=== PATIENT | male | born 1945 | race Caucasian/White ===

== ENCOUNTER 2022-07-25 20:19 | Inpatient (IN) ==
[2022-07-25 20:52] LABS: Basophils # (auto) 0.06 K/uL (0-0.2); Basophils % (auto) 0.7 %; Eosinophils # (auto) 0.01 K/uL (0-0.50); Eosinophils % (auto) 0.1 %; Hematocrit (blood only) 48.5 % (40.1-51.0); Hemoglobin 17.2 g/dl (14.0-18.0); Immature Granulocytes # (auto) 0.04 K/uL (0.00-0.02); Immature Granulocytes % (auto) 0.4 %; Lymphocytes # (auto) 0.73 K/uL (1.2-3.4); Mean Corpuscular Hemoglobin 31.8 pg (25.0-34.0); Mean Corpuscular Hgb Conc 35.5 g/dL (32.0-36.0); Mean Corpuscular Volume 89.6 fL (80.0-100.0); Mean Platelet Volume 10.2 fL (9.4-12.4); Monocytes # (auto) 0.88 K/uL (0.24-0.82); Monocytes % (auto) 9.7 %; Neutrophils # (auto) 7.36 K/uL (1.4-6.5); Neutrophils % (auto) 81.1 %; Platelet Count 194 K/uL (130-400); RDW Coefficient of Variation 14.2 % (11.5-14.5); RDW Standard Deviation 46.6 fL (36.4-46.3); Red Blood Count 5.41 M/uL (4.63-6.08); White Blood Count 9.08 K/ul (4.8-10.8)
[2022-07-25] MEDS ORDERED: dilTIAZem HCl 5 MG/ML 5 ML VIAL IV STA (20:53)
[2022-07-25] MEDS ORDERED: STAT IV Infusion **Titration per Protocol STA (20:53)
[2022-07-25] MEDS ORDERED: dilTIAZem HCl 5 MG/ML 5 ML VIAL IV ONE (20:54)
[2022-07-25] MEDS ORDERED: SODIUM CHLORIDE 0.9% 1000ML 1,000 ML IV ONE (20:57)
[2022-07-25] MEDS ORDERED: ASPIRIN CHEW 324 MG PO STA (20:57)
[2022-07-25] MEDS ORDERED: dilTIAZem HCL 125 MG in DEXTROSE 5% 100 ML IV SCH (21:00)
[2022-07-25 21:12] LABS: INR 1.1 (0.9-1.1); Partial Thromboplastin Time 28.8 Seconds (21.0-31.0); Prothrombin Time 12.1 Seconds (9.0-12.0)
[2022-07-25 21:17] LABS: Albumin Globulin Ratio 1.4 (0.9-2); BUN Creatinine Ratio 15.2 (10-20); Bilirubin,Total 0.7 mg/dl (0.2-1.0); Calcium 8.7 mg/dl (8.5-10.1); Creatinine Clr Calc Pharmacy 74.9 ml/min; D Dimer 860 ug/L FEU (0-500); Est GFR (African American) 85.4 ml/min; Est GFR (Non-African American) 73.7 ml/min; Globulin 2.8 gm/dl (2.5-4.0); Potassium 3.9 mmol/L (3.5-5.1); Total Protein 6.8 gm/dl (6.0-8.3)
[2022-07-25 21:31] LABS: Influenza B virus by PCR Negative (Neg); RSV by PCR Negative (Neg); SARS CoV2 RNA(COVID-19) Ceph NEGATIVE (Negative)
[2022-07-25 21:37] LABS: Influenza A virus by PCR Positive (Neg)
[2022-07-25] MEDS ORDERED: OSELTAMIVIR PHOSPHATE 75 MG CAP PO STA (22:02)
[2022-07-25 22:10] LABS: Troponin I High Sensitivity 32.1 pg/ml (0-20)
[2022-07-25] MEDS ORDERED: OPTIRAY 320 500ml IV ONE (22:10)
--- NOTE | 2022-07-25 22:49 | Emergency Department Note ---
History of Present Illness General Chief Complaint: Flu Like Symptoms Stated Complaint: TIREDNESS,DEHYDRATION,WEAK,COLD,WHEEZING Time Seen by Provider: 07/25/22 20:40 History of Present Illness Provider Complaint: + cough and + nasal congestion Onset (ago): 3 day(s) Duration: + intermittent Description of mucous: + yellow Able to tolerate fluids by mouth: Yes Associated symptoms: + fever, + chills, + myalgias, + nasal congestion, + cough, + chest pain and + shortness of breath; no nausea, no vomiting, no diarrhea or no dysuria Home Medications Medication Instructions Recorded Confirmed Type acyclovir 400 mg tablet 400 mg PO DAILY 07/25/22 07/25/22 History finasteride 5 mg tablet 5 mg PO DAILY 07/25/22 07/25/22 History metformin 500 mg tablet 500 mg PO BID 07/25/22 07/25/22 History omeprazole 40 mg capsule,delayed 40 mg PO QAM 07/25/22 07/25/22 History release tamsulosin 0.4 mg capsule 0.4 mg PO DAILY 07/25/22 07/25/22 History Past Med/Surg History Medical History Diabetes No pertinent family history Surgical History No pertinent past surgical history Social History Smoking Status: Never smoker Preferred Language: Italian Feels Safe at Home: Yes Review of Systems A total of 10 systems reviewed and were otherwise negative Physical Exam Vital Signs: Vital Signs - 24 hr 07/25/22 20:23 07/25/22 21:25 07/25/22 22:20 Temperature 37.5 C Temperature Source Oral Pulse Rate 74 98 H 87 Respiratory Rate 16 18 12 Blood Pressure 158/76 H 105/59 L 119/47 L Blood Pressure Kirti n 103 74 71 Pulse Oximetry 93 96 98 Sepsis Recent Feve r Within 48 Hours No Sepsis New/Unexpla ined Change in Men mishel Status N/A Sepsis Action Take n by Nursing No Action Required 07/25/22 22:30 Temperature Temperature Source Pulse Rate 85 Respiratory Rate 13 Blood Pressure 106/54 L Blood Pressure Kirti n 71 Pulse Oximetry 96 Sepsis Recent Feve r Within 48 Hours Sepsis New/Unexpla ined Change in Men mishel Status Sepsis Action Take n by Nursing Physical Exam: Physical Exam EYES: Conjunctivae and EOM are normal. Pupils are equal, round, and reactive to light. Right eye exhibits no discharge. Left eye exhibits no discharge. No scleral icterus. NECK: Normal range of motion. Neck supple. No JVD present. No spinous process te nderness present. No carotid bruit present. No rigidity. No tracheal deviation and normal range of motion present. CV: Tachycardic rate, irregular rhythm, normal heart sounds and intact distal pulses. There is no peripheral edema. Palpable radial pulses bue. PULM/CHEST: Rhonchi bilaterally - Chest Wall: He exhibits no tenderness. ABD: The abdomen is soft. Bowel sounds are normal. He has no distension. No mass is present. There is no tenderness. There is no rebound, no guarding, no Garner's sign and no tenderness at McBurney's point. Rovsig negative. MUSC/SKEL: Normal range of motion. There is no peripheral edema, tenderness or deformity. LYMPH: No cervical adenopathy. NEURO: He is alert and oriented to person, place, and time. He has normal strength. No cranial nerve deficit or sensory deficit. Coordination and gait normal. GCS eye subscore is 4. GCS verbal subscore is 5. GCS motor subscore is 6. Cerebellar tests wnl. SKIN: Skin is warm and dry. He is not diaphoretic. PSYCH: He has a normal mood and affect. Behavior is normal. Judgment and thought content normal. Course Course 2039: The patient was evaluated in room B9. A complete history and physical exam was performed Cardiac monitoring: An order was placed for continuous cardiac monitoring. The monitor shows a rate of 110-130 with atrial fibrilation rhythm Patient was found to be in A. fib RVR. Patient has no history of A. fib RVR.Patient was given Cardizem bolus which did improve the patient's ventricular rate. 2149: Patient remained tachycardic and started on Cardizem drip. Labs are within normal limits with exception of elevated D-dimer of 860. Troponin elevated at 32.1. Patient is influenza positive. Patient be started on Tamiflu given his age and is new cardiac arrhythmia and the diagnosis of influenza. Patient will have CTA of the chest done to rule out PE. 2335: Vital signs stable on Cardizem drip. CTA negative for PE. Patient has a [id number] score of 3, he will be started on a heparin bolus and heparin drip. Discussed the case with Dr. Ashish Yuen hospitalist will evaluate patient for admission. Administered Medications Diltiazem HCl 125 mg/ Dextrose 125 mls @ 5 mls/hr IV .Q24H [facility]; Protocol Stop: 08/24/22 20:59 Last Admin: 07/25/22 21:24 Dose: 5 mg/hr, 5 mls/hr Documented By: ROBY Co-signed By: CHRISTY Discontinued Medications Aspirin (Aspirin Chew 324 Mg) 324 mg PO NOW STA Stop: 07/25/22 20:58 Last Admin: 07/25/22 21:05 Dose: 324 mg Documented By: ROBY Diltiazem HCl (Diltiazem Hcl 5 Mg/Ml 5 Ml Vial) 15 mg IV NOW STA Stop: 07/25/22 20:54 Last Admin: 07/25/22 21:06 Dose: 10 mg Documented By: ROBY Co-signed By: MELVA Diltiazem HCl (Diltiazem Hcl 5 Mg/Ml 5 Ml Vial) Confirm Administered Dose 25 mg IV .STK-MED ONE Stop: 07/25/22 20:55 Last Admin: 07/25/22 21:08 Dose: Not Given Documented By: ROBY Sodium Chloride (Nss 1000ml) 1,000 mls @ 999 mls/hr IV .Q1H1M ONE Stop: 07/25/22 21:57 Last Infusion: 07/25/22 22:24 Dose: 0 mls/hr Documented By: Admin: 07/25/22 21:06 Dose: 999 mls/hr Documented By: ROBY Ioversol (Optiray 320 500ml) 114 ml IV ONCE ONE Stop: 07/25/22 22:11 Last Admin: 07/25/22 22:11 Dose: 114 ml Documented By: MARY Oseltamivir Phosphate (Oseltamivir Phosphate 75 Mg Cap) 75 mg PO NOW STA; Protocol Stop: 07/25/22 22:03 Last Admin: 07/25/22 22:20 Dose: 75 mg Documented By: ROBY Medical Decision Making Laboratory Data Attestation: I reviewed the patient's lab results. Result diagrams: 07/25/22 20:35 07/25/22 20:35 Lab Results 07/25/22 07/25/22 07/25/22 Range/Units 20:34 20:35 20:35 WBC 9.08 (4.8-10.8) K/ul RBC 5.41 (4.63-6.08) M/uL Hgb 17.2 (14.0-18.0) g/dl Hct 48.5 (40.1-51.0) % MCV 89.6 (80.0-100.0) fL MCH 31.8 (25.0-34.0) pg MCHC 35.5 (32.0-36.0) g/dL RDW Std Deviation 46.6 H (36.4-46.3) fL RDW Coeff of Costa 14.2 (11.5-14.5) % Plt Count 194 (130-400) K/uL MPV 10.2 (9.4-12.4) fL Immature Gran % (Auto) 0.4 % Neut % (Auto) 81.1 % Lymph % (Auto) 8.0 % Jessamine % (Auto) 9.7 % Eos % (Auto) 0.1 % Baso % (Auto) 0.7 % Neut # (Auto) 7.36 H (1.4-6.5) K/uL Lymph # (Auto) 0.73 L (1.2-3.4) K/uL Jessamine # (Auto) 0.88 H (0.24-0.82) K/uL Eos # (Auto) 0.01 (0-0.50) K/uL Baso # (Auto) 0.06 (0-0.2) K/uL Immature Gran # (Auto) 0.04 H (0.00-0.02) K/uL PT (9.0-12.0) Seconds INR (0.9-1.1) APTT (21.0-31.0) Seconds PTT Ratio D-Dimer (0-500) ug/L FEU Sodium 131 L (136-145) mmol/L Potassium 3.9 (3.5-5.1) mmol/L Chloride 101 (98-107) mmol/L Carbon Dioxide 21 (21-32) mmol/L Anion Gap 9 (3-11) BUN 15 (6-23) mg/dl Creatinine 0.99 (0.6-1.4) mg/dl Est Cr Clr Drug Dosing 74.9 ml/min Est GFR ( Amer) 85.4 ml/min Est GFR (Non-Af Amer) 73.7 ml/min BUN/Creatinine Ratio 15.2 (10-20) Glucose 144 H (70-99(Fasting)) mg/dl Calcium 8.7 (8.5-10.1) mg/dl Magnesium (1.7-2.4) mg/dl Total Bilirubin 0.7 (0.2-1.0) mg/dl AST 31 (13-39) U/L ALT 22 (7-52) U/L Alkaline Phosphatase 41 (34-104) U/L Troponin I High Sens (0-20) pg/ml Total Protein 6.8 (6.0-8.3) gm/dl Albumin 4.0 (3.4-5.0) gm/dl Globulin 2.8 (2.5-4.0) gm/dl Albumin/Globulin Ratio 1.4 (0.9-2) Lipase (11-82) U/L SARS-CoV-2 (PCR) NEGATIVE (Negative) Influenza Type A (PCR) Positive A* (Neg) Influenza Type B (PCR) Negative (Neg) RSV (RT-PCR) Negative (Neg) 07/25/22 07/25/22 07/25/22 Range/Units 20:35 20:35 20:35 WBC (4.8-10.8) K/ul RBC (4.63-6.08) M/uL Hgb (14.0-18.0) g/dl Hct (40.1-51.0) % MCV (80.0-100.0) fL MCH (25.0-34.0) pg MCHC (32.0-36.0) g/dL RDW Std Deviation (36.4-46.3) fL RDW Coeff of Costa (11.5-14.5) % Plt Count (130-400) K/uL MPV (9.4-12.4) fL Immature Gran % (Auto) % Neut % (Auto) % Lymph % (Auto) % Jessamine % (Auto) % Eos % (Auto) % Baso % (Auto) % Neut # (Auto) (1.4-6.5) K/uL Lymph # (Auto) (1.2-3.4) K/uL Jessamine # (Auto) (0.24-0.82) K/uL Eos # (Auto) (0-0.50) K/uL Baso # (Auto) (0-0.2) K/uL Immature Gran # (Auto) (0.00-0.02) K/uL PT 12.1 H (9.0-12.0) Seconds INR 1.1 (0.9-1.1) APTT 28.8 (21.0-31.0) Seconds PTT Ratio 1.0 D-Dimer 860 H* (0-500) ug/L FEU Sodium (136-145) mmol/L Potassium (3.5-5.1) mmol/L Chloride (98-107) mmol/L Carbon Dioxide (21-32) mmol/L Anion Gap (3-11) BUN (6-23) mg/dl Creatinine (0.6-1.4) mg/dl Est Cr Clr Drug Dosing ml/min Est GFR ( Amer) ml/min Est GFR (Non-Af Amer) ml/min BUN/Creatinine Ratio (10-20) Glucose (70-99(Fasting)) mg/dl Calcium (8.5-10.1) mg/dl Magnesium 1.7 (1.7-2.4) mg/dl Total Bilirubin (0.2-1.0) mg/dl AST (13-39) U/L ALT (7-52) U/L Alkaline Phosphatase (34-104) U/L Troponin I High Sens 32.1 H (0-20) pg/ml Total Protein (6.0-8.3) gm/dl Albumin (3.4-5.0) gm/dl Globulin (2.5-4.0) gm/dl Albumin/Globulin Ratio (0.9-2) Lipase 22 (11-82) U/L SARS-CoV-2 (PCR) (Negative) Influenza Type A (PCR) (Neg) Influenza Type B (PCR) (Neg) RSV (RT-PCR) (Neg) ECG Data Attestation: I personally reviewed and interpreted this ECG as follows: Additional Comments: EKG 1 at 2036: Atrial fibrillation with rate of 119. QRS [address] elevation or ST depression. PVCs are present. EKG #2 at 2103 status post Cardizem 10 mg IV bolus: Atrial fibrillation with a rate of 84. QRS and QTc intervals are within normal limits. No ST elevation or ST depression. PVCs are present. MDM Narrative 2039: The patient was evaluated in room B9. A complete history and physical exam was performed Cardiac monitoring: An order was placed for continuous cardiac monitoring. The monitor shows a rate of 110-130 with atrial fibrilation rhythm Patient was found to be in A. fib RVR. Patient has no history of A. fib RVR.Patient was given Cardizem bolus which did improve the patient's ventricular rate. 2149: Patient remained tachycardic and started on Cardizem drip. Labs are within normal limits with exception of elevated D-dimer of 860. Troponin elevated at 32.1. Patient is influenza positive. Patient be started on Tamiflu given his age and is new cardiac arrhythmia and the diagnosis of influenza. Patient will have CTA of the chest done to rule out PE. 2335: Vital signs stable on Cardizem drip. CTA negative for PE. Patient has a [id number] score of 3, he will be started on a heparin bolus and heparin drip. Discussed the case with Dr. Ashish Yuen hospitalist will evaluate patient for admission. Impression & Plan Atrial fibrillation with RVR, Influenza, Elevated troponin Critical Care Time Critical Care Time: Yes Total Critical Care Time: 67 I have personally spent greater than 67 minutes of critical care time in the direct management of this patient. This includes bedside care, interpretation of diagnostic studies, and testing, discussion with consultants, patient, and family members, and other required patient management activities. This 67 minutes is in excess of all separately billable procedures. Discharge Plan Visit Data Chief Complaint: Flu Like Symptoms Stated Complaint: TIREDNESS,DEHYDRATION,WEAK,COLD,WHEEZING ED Provider: Chun Cohen Discharge Problem: Atrial fibrillation with RVR, Influenza, Elevated troponin Patient Disposition: Admitted As Inpatient Forms Stand Alone Forms: My [facility] Prescriptions Prescriptions: No Action metformin 500 mg tablet 500 mg PO BID acyclovir 400 mg tablet 400 mg PO DAILY omeprazole 40 mg capsule,delayed release(DR/EC) 40 mg PO QAM tamsulosin 0.4 mg capsule 0.4 mg PO DAILY finasteride 5 mg tablet 5 mg PO DAILY Referrals Referrals: Julian Zheng MD [Primary Care Provider] -
[2022-07-25] MEDS ORDERED: Heparin IV Adult Wt-Based Low-Dose WITH Bolus Protocol IV STA (23:23)
[2022-07-25] MEDS ORDERED: HEPARIN SOD (PORCINE) 1000 UNIT/ML IV ONE (23:39)
[2022-07-25] MEDS ORDERED: HEPARIN SOD (PORCINE) 1000 UNIT/ML IV SCH (23:45)
[2022-07-26] MEDS: HEPARIN SODIUM/DEXTROSE 25,000 UNITS/500 ML BAG IV SCH (01:10)
[2022-07-26] MEDS ORDERED: CARBOHYDRATES FOR HYPOGLYCEMIA PO PRN (02:28)
[2022-07-26] MEDS ORDERED: ACETAMINOPHEN 325 MG TAB PO PRN (02:28)
[2022-07-26] MEDS ORDERED: DEXTROSE 50% 50 ML SYRINGE IV PRN (02:28)
[2022-07-26] MEDS ORDERED: MAGNESIUM HYDROXIDE SUSP 30 ML UDC PO PRN (02:28)
[2022-07-26] MEDS ORDERED: GLUCOSE 40% GEL 15 GM TUBE PO PRN (02:28)
[2022-07-26] MEDS ORDERED: GLUCAGON FOR INJ 1 MG VIAL SQ PRN (02:28)
[2022-07-26] MEDS ORDERED: ALUMINUM/MAGNESIUM SUSP 30 ML UDC PO PRN (02:28)
[2022-07-26] MEDS ORDERED: ONDANSETRON INJ 2 MG/ML 2 ML VIAL IV PRN (02:28)
[2022-07-26] MEDS ORDERED: POLYETHYLENE (MIRALAX) 17 GM PACK PO PRN (02:28)
[2022-07-26] MEDS ORDERED: GLUCOSE 10 TAB/TUBE PO PRN (02:28)
--- NOTE | 2022-07-26 02:43 | History & Physical Report ---
Date of Service July 26, 2022 Assessment & Plan (1) Atrial fibrillation with RVR: Plan Generalized weakness Influenza A Patient presents with dry cough and generalized weakness for 2 days [employer] WOR[employer]IAN, denies sick contact. Diagnosed with influenza A upon admission, continue with supportive management. PT/OT when able. Continue with Tamiflu started in the ED Follow final reads on CTA chest and CXR. No PE per preliminary read. New A. fib RVR: Patient found to be in A. fib with heart rate in 100 - 130 at presentation, patient was started on heparin drip and Cardizem drip in the ED, will continue with same, TSH, echo, cardiology consult, telemetry monitoring. Likely demand ischemia: Troponin elevated at 32.1 at presentation, patient with no chest pain, likely secondary to acute illness and A. fib RVR. Trend tropo catracho. Patient getting echo. DVT prophylaxis: Patient on heparin drip DNR/DNI Admission and Anticipated Discharge Date Admission Date: July 25, 2022 History of Present Illness Chief Complaint: Dry cough and weakness since 2 days Primary Care Provider: Julian Zheng MD 77-year-old male with PMH of prediabetes, genital herpes on suppressive dose of acyclovir presented to our ED 07/25 with complaint of dry cough and weakness for 2 days [employer] WOR[employer]CH[employer]ICIAN. Patient denies any sick contact. Patient denies any fever. Patient reports myalgia. Reports decreased appetite. Patient denies any diarrhea or chest pain or palpitation. Patient reports bilateral lower thoracic cage pain due to coughing. Patient denies any acute changes in his bladder habit lately. Patient reports having treadmill stress test almost 2 months ago and was told that the test was fairly WNL. Patient reports having history of ectopic heart rate. Patient quit smoking in 1989, quit drinking alcohol heavily in 1967 and currently drinks 1 drink a week. Denies use of recreational drugs. DNR/DNI per discussion with patient. 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 Family history significant of A. fib in mother and father, some kind of cancer in his mother per patient. Patient is from the [facility], visiting the area. Allergies Allergy/AdvReac Type Severity Reaction Status Date / Time Penicillins Allergy Intermediate Hives Verified 07/25/22 23:57 Home Medications Medication Instructions Recorded Confirmed Type acyclovir 400 mg tablet 400 mg PO QPM 07/25/22 07/25/22 History finasteride 5 mg tablet 5 mg PO QPM 07/25/22 07/25/22 History metformin 500 mg tablet 500 mg PO AMPM 07/25/22 07/25/22 History tamsulosin 0.4 mg capsule 0.4 mg PO QPM 07/25/22 07/25/22 History Past Med/Surg History Medical History Diabetes No pertinent family history Surgical History No pertinent past surgical history Social History Smoking Status: Never smoker Preferred Language: Romansh Feels Safe at Home: Yes Review of Systems Review of Systems: Negative otherwise mentioned in HPI. Physical Exam Physical Exam: GENERAL: Alert and oriented x3. NAD, on RA. HEENT: No pallor, no icterus. Pupils equal, round and reactive to light. Oral mucosa moist. NECK: No JVD, no neck masses. HEART: S1 and S2 heard. irregular rate and rhythm, 90s - 100s. No murmur, no gallop. RESPIRATORY SYSTEM: Normal AP diameter. No accessory muscle use. No wheezing, no crackles. ABDOMEN: Soft, bowel sounds present, nontender, no distention. Umbilical hernia noted. CENTRAL NERVOUS SYSTEM: No facial droop. Speech is clear. Obeys simple commands. Moves extremities. EXTREMITIES: No edema, no erythema seen. Results & Data Results & Data ([facility]) Vital Signs (Past 12 Hours) Vital Signs Temp Pulse Resp BP Pulse Ox 07/26/22 01:00 89 19 113/77 96 07/26/22 00:30 84 22 111/61 94 07/26/22 00:00 79 23 111/65 93 07/25/22 23:30 88 15 115/71 94 07/25/22 23:00 106 H 20 111/65 98 07/25/22 22:30 85 13 106/54 L 96 07/25/22 22:20 87 12 119/47 L 98 07/25/22 21:25 98 H 18 105/59 L 96 07/25/22 20:23 37.5 C 74 16 158/76 H 93
[2022-07-26 04:01] LABS: BUN Creatinine Ratio 15.3 (10-20); Calcium 7.7 mg/dl (8.5-10.1); Creatinine Clr Calc Pharmacy 87.3 ml/min; Est GFR (African American) 98.1 ml/min; Est GFR (Non-African American) 84.6 ml/min; Potassium 3.8 mmol/L (3.5-5.1)
[2022-07-26 06:29] LABS: Appearance Urine Clear (Clear); Bacteria Urine Automated Negative (Negative); Bilirubin Urine Negative (Negative); Blood Urine Negative (Negative); Cast Urine Automated 0 /lpf (0-5); Color Urine Yellow; Glucose Urine UA Negative (Negative); Ketones Urine Trace (Negative); Leukocyte Esterase Urine Negative (Negative); Nitrite Urine Negative (Negative); Protein Urine Trace (Negative); RBC Urine Automated 0-4 /hpf (0-4); Specific Gravity Urine > 1.045 (1.000-1.030); Urobilinogen Urine Negative (Negative); pH Urine 5.5 (4.5-7.5)
--- NOTE | 2022-07-26 08:32 | CT Scan Report ---
CHEST CTA for PULMONARY ARTERIES CT DOSE: 570.28 mGy.cm HISTORY: Shortness of breath. TECHNIQUE: Multiaxial CT images of the chest were performed following the intravenous administration of contrast to evaluate the pulmonary arteries. Maximal intensity projection images were also obtaine d. A dose lowering technique was utilized adhering to the principles of ALARA. COMPARISON STUDY: None. FINDINGS: The visualized liver and spleen are unremarkable. Normal caliber esophagus. No pleural or p ericardial effusions. The heart is mildly enlarged. There are extensive coronary artery calcification s noted. No mediastinal lymphadenopathy. There are few ulna bilateral hilar lymph nodes. The thyroid gland enhances normally. Normal caliber abdominal aorta with no evidence for a dissection. The majori ty of the subsegmental pulmonary arteries within the lung bases are nondiagnostic due to the respirat ory motion artifact. Otherwise, no filling defects within the remaining pulmonary arteries to suggest a pulmonary embolus. No suspicious lytic or blastic osseous lesions. No pneumothorax. Diffuse bronch ial wall thickening is noted. Punctate calcified granuloma within the left lower lobe. Mild emphysema . Mild dependent changes seen within the lungs posteriorly. Suboptimal evaluation of the lungs due to the respiratory motion artifact. IMPRESSION: 1. No evidence for a pulmonary embolus. 2. Mild cardiomegaly. 3. Diffuse bronchial wall thickening. This is consistent with a bronchitis. 4. Borderline bilateral hilar lymphadenopathy. ACT 112: Negative or not required by law. Electronically signed by: Miko Faustin M.D. 07/26/2022 8:31 AM
--- NOTE | 2022-07-26 08:33 | XRay Report ---
XR chest 1V portable HISTORY: cough COMPARISON: None. FINDINGS: The cardiac silhouette is mildly enlarged. No pneumothorax. No pleural effusions. No focal lung consolidations to suggest a pneumonia. No evidence for pulmonary edema. Degenerative changes wit hin the bilateral shoulders. IMPRESSION: Mild cardiomegaly. Otherwise, no acute process within the chest. ACT 112: Negative or not required by law. Electronically signed by: Miko Faustin M.D. 07/26/2022 8:32 AM
[2022-07-26 08:46] LABS: Partial Thromboplastin Time 55.8 Seconds (21.0-31.0)
[2022-07-26] MEDS: INSULIN ASPART PER UNIT SC SCH ×4 (08:46→20:34)
[2022-07-26] MEDS: OSELTAMIVIR PHOSPHATE 75 MG CAP PO SCH ×2 (08:46→20:55)
[2022-07-26] MEDS: LANTUS PER UNIT CHARGE SQ SCH ×2 (08:46→20:49)
--- NOTE | 2022-07-26 11:49 | Cardiology Consultation ---
Date of Consultation July 26, 2022 Assessment & Plan (1) Atrial fibrillation with RVR: (2) Influenza: (3) Elevated troponin: Plan I had a long discussion with the patient and his regarding the natural history and pathophysiology of paroxysmal atrial fibrillation in the setting of influenza A infection. Recommend oral metoprolol 25 mg twice daily. Will wean off diltiazem infusion over the next 2-3 hours. Continue IV heparin. Transition to oral Eliquis 5 mg twice daily in the AM. Continue telemetry monitoring. Consideration for elective external direct-current cardioversion after 4 weeks of adequate anticoagulation. 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 Possible discharge in 24 hours. History of Present Illness Reason for Consultation: Paroxysmal atrial fibrillation Requesting Physician: Dr. Hinojosa Attending Physician: Angelo Jaramillo MD History of Present Illness 77-year-old patient presents to the emergency department with malaise, fatigue, and weakness. Diagnosed with influenza A and paroxysmal atrial fibrillation in the ER. Heart rate initially elevated. Treated with intravenous diltiazem infusion with marked improvement of rate control. Denies palpitations or chest discomfort. High-sensitivity troponin minimally elevated and flat. No ischemic ECG changes. Bedside 2D transthoracic echocardiogram demonstrates preserved LV systolic function. Patient reports a recent exercise stress echo approximately 2 months ago (heart group in [place]) which was reportedly normal. Denies personal history of coronary disease, congestive heart failure, rheumatic fever as a child, TIA, or CVA. Notes mother with atrial fibrillation alive in her 90s with a pacemaker. present at bedside who is a retired RN. She offers no additional concerns/complaints. Allergies Allergy/AdvReac Type Severity Reaction Status Date / Time Penicillins Allergy Intermediate Hives Verified 07/25/22 23:57 Home Medications Medication Instructions Recorded Confirmed Type acyclovir 400 mg tablet 400 mg PO QPM 07/25/22 07/25/22 History finasteride 5 mg tablet 5 mg PO QPM 07/25/22 07/25/22 History tamsulosin 0.4 mg capsule 0.4 mg PO QPM 07/25/22 07/25/22 History apixaban 5 mg tablet (Eliquis) 5 mg PO BID 30 days #60 tabs 07/27/22 Rx metformin 500 mg tablet 500 mg PO AMPM #30 tabs 07/27/22 07/25/22 Rx metoprolol tartrate 25 mg tablet 25 mg PO BID 30 days #60 tabs 07/27/22 Rx oseltamivir 75 mg capsule (Tamiflu) 75 mg PO BID #7 caps 07/27/22 Rx Patient History Medical History Diabetes No pertinent family history Surgical History No pertinent past surgical history Social History Smoking Status: Former smoker Hx Alcohol Use: Yes Alcohol type: beer and wine Hx Substance Use: No Preferred Language: Amharic Communication Ability: Effective Short Order Cook Required: No Beliefs That Will Affect Care: None Current Living Situation: Spouse Other Information That Helps Us Care for You: No Feels Safe at Home: Yes Safety Concerns: Feels Safe At This Time Assistive Devices: Glasses Review of Systems Review of Systems: All systems reviewed & are unremarkable except as noted in Subjective Physical Exam Constitutional: well developed and well nourished; no acute distress Respiratory: normal respiratory effort; no respiratory distress, no labored breathing and no retractions Cardiovascular: Rate/Rhythm: + irregularly irregular Heart Sounds: normal S1 and normal S2; no murmur Vessels: no JVD and no carotid bruit Extremities: no edema Gastrointestinal (Abdomen): Inspection/Auscultation: abdomen normal to inspection and normal bowel sounds; abdomen not distended Percussion/Palpation: abdomen soft; abdomen nontender, no guarding and abdomen not rigid Neurologic: CN's II-XI intact bilaterally and moves all extremities; no focal motor deficits Psychiatric: A+Ox3, euthymic affect Results & Data ([facility]) Vital Signs (Past 12 Hours) Vital Signs Temp Pulse Pulse Resp BP BP Pulse Ox 07/26/22 11:29 36.9 C 63 16 113/66 93 07/26/22 09:39 36.7 C 50 L 18 117/76 92 07/26/22 07:00 81 20 118/60 93 07/26/22 06:00 87 18 116/61 92 07/26/22 05:01 94 H 24 119/61 92 07/26/22 04:00 90 24 106/68 93 07/26/22 03:00 91 H 20 123/61 93 07/26/22 02:30 89 20 114/63 96 07/26/22 02:00 85 22 113/66 94 07/26/22 01:30 99 H 15 113/74 97 07/26/22 01:00 89 19 113/77 96 07/26/22 00:30 84 22 111/61 94 07/26/22 00:00 79 23 111/65 93 O2 Del Method 07/26/22 11:29 Room Air 07/26/22 09:39 Room Air 07/26/22 07:00 Room Air 07/26/22 06:00 07/26/22 05:01 07/26/22 04:00 07/26/22 03:00 07/26/22 02:30 07/26/22 02:00 07/26/22 01:30 07/26/22 01:00 07/26/22 00:30 07/26/22 00:00
[2022-07-26] MEDS: METOPROLOL TARTRATE 25 MG TAB PO SCH ×2 (13:01→20:53)
--- NOTE | 2022-07-26 14:47 | Electrocardiogram Report ---
Test Reason : Blood Pressure : / mmHG Vent. Rate : 119 BPM Atrial Rate : 113 BPM P-R Int : 000 ms QRS Dur : 094 ms QT Int : 332 ms P-R-T Axes : 000 -61 089 degrees QTc Int : 467 ms Atrial fibrillation with rapid ventricular response with premature ventricular or aberrantly conducte d complexes Left anterior fascicular block Nonspecific ST and T wave abnormality Abnormal ECG No previous ECGs available Confirmed by Foster Prado ([id number]) on 07/26/2022 2:47:02 PM Referred By: REFERRED SELF Confirmed By:Foster Prado
--- NOTE | 2022-07-26 14:48 | Electrocardiogram Report ---
Test Reason : Blood Pressure : / mmHG Vent. Rate : 084 BPM Atrial Rate : 416 BPM P-R Int : 000 ms QRS Dur : 092 ms QT Int : 370 ms P-R-T Axes : 000 -57 099 degrees QTc Int : 437 ms Atrial fibrillation with premature ventricular or aberrantly conducted complexes Left anterior fascicular block Minimal voltage criteria for LVH, may be normal variant Nonspecific ST and T wave abnormality Abnormal ECG When compared with ECG of 25-JUL-2022 20:37, (unconfirmed) No significant change was found Confirmed by Foster Prado ([id number]) on 07/26/2022 2:48:09 PM Referred By: REFERRED SELF Confirmed By:Foster Prado
--- NOTE | 2022-07-26 15:53 | Hospitalist Progress Note ---
Date of Service July 26, 2022 Assessment & Plan (1) Atrial fibrillation with RVR: Plan Generalized weakness Influenza A CT chest: 1. No evidence for a pulmonary embolus. 2. Mild cardiomegaly. 3. Diffuse bronchial wall thickening. This is consistent with a bronchitis. 4. Borderline bilateral hilar lymphadenopathy. on room air no dyspnea continue Tamiflu New A. fib RVR: Patient found to be in A. fib with heart rate in 100 - 130 at presentation, patient was started on heparin drip and Cardizem drip in the ED Echo: EF 55-60% mild concentric LVH no significant valvular pathology remains in A fib HR controlled Diltiazem drip discontinued, transitioned to Metoprolol 25mg po BID on Heparin drip Likely demand ischemia: Troponin elevated at 32.1 --> 28 DVT prophylaxis: Patient on heparin drip DNR/DNI plan of care discussed with patient in detail and at length all questions answered he is understanding, agreeable, comfortable with the plan of care Admission and Anticipated Discharge Date Admission Date: July 25, 2022 Subjective ff up for a fib, influenza a, etc seen resting in bed, comfortable son at bedside visiting states he feels fine overall no chest pain, dyspnea, palpitations, dizziness no bleeding breathing is ok, has dry cough no other symptoms Review of Systems Review of Systems: all noted and negative except for above Physical Exam Physical Exam: General- oriented x 3, not in distress, speaks in sentences with no effort or accessory muscle use Eyes- anicteric Neck- no JVD Lungs- clear breath sounds bilaterally, no crackles or wheezing Heart- normal rate, irregularly, irregular rhythm; no murmurs Abdomen- normal bowel sounds, nondistended, soft, nontender Extremities- no pretibial edema, no calf tenderness Neuro- alert, oriented x 3; no gross focal neurologic deficits Skin- warm & dry Results & Data Results & Data ([facility]) Vital Signs (Past 12 Hours) Vital Signs Temp Pulse Pulse Resp BP BP Pulse Ox 07/26/22 11:29 36.9 C 63 16 113/66 93 07/26/22 09:39 36.7 C 50 L 18 117/76 92 07/26/22 07:00 81 20 118/60 93 07/26/22 06:00 87 18 116/61 92 07/26/22 05:01 94 H 24 119/61 92 07/26/22 04:00 90 24 106/68 93 O2 Del Method 07/26/22 11:29 Room Air 07/26/22 09:39 Room Air 07/26/22 07:00 Room Air 07/26/22 06:00 07/26/22 05:01 07/26/22 04:00 all noted and reviewed including below
[2022-07-26] MEDS ORDERED: TAMSULOSIN HCL 0.4 MG CAP PO SCH (21:00)
[2022-07-26] MEDS ORDERED: FINASTERIDE 5 MG TAB PO SCH (21:00)
[2022-07-26] MEDS ORDERED: ACYCLOVIR 400 MG TAB PO SCH (21:00)
[2022-07-27] MEDS: HEPARIN SODIUM/DEXTROSE 25,000 UNITS/500 ML BAG IV SCH (01:44)
[2022-07-27] MEDS: INSULIN ASPART PER UNIT SC SCH ×2 (07:54→12:14)
[2022-07-27 07:58] LABS: Hemoglobin 16.3 g/dl (14.0-18.0); Mean Corpuscular Hemoglobin 31.6 pg (25.0-34.0); Mean Corpuscular Hgb Conc 34.7 g/dL (32.0-36.0); Mean Corpuscular Volume 91.1 fL (80.0-100.0); Mean Platelet Volume 10.7 fL (9.4-12.4); Platelet Count 160 K/uL (130-400); RDW Coefficient of Variation 14.5 % (11.5-14.5); RDW Standard Deviation 48.2 fL (36.4-46.3); Red Blood Count 5.16 M/uL (4.63-6.08); White Blood Count 4.99 K/ul (4.8-10.8)
[2022-07-27] MEDS: LANTUS PER UNIT CHARGE SQ SCH (07:58)
[2022-07-27] MEDS: OSELTAMIVIR PHOSPHATE 75 MG CAP PO SCH (08:00)
[2022-07-27] MEDS: METOPROLOL TARTRATE 25 MG TAB PO SCH (08:00)
[2022-07-27 08:23] LABS: Magnesium 2.1 mg/dl (1.7-2.4); Phosphorus 2.9 mg/dl (2.5-4.9)
[2022-07-27 08:30] LABS: Partial Thromboplastin Ratio 2.2
[2022-07-27] MEDS ORDERED: STOP HEPARIN DRIP ORDER ONE (09:00)
[2022-07-27] MEDS ORDERED: APIXABAN 5 MG TABLET PO SCH (09:00)
[2022-07-27 09:02] LABS: Partial Thromboplastin Time 60.1 Seconds (21.0-31.0)
--- NOTE | 2022-07-27 12:20 | Hospitalist Progress Note ---
Date of Service July 27, 2022 delayed entry date of service noted above Assessment & Plan (1) Atrial fibrillation with RVR: Plan Generalized weakness Influenza A CT chest: 1. No evidence for a pulmonary embolus. 2. Mild cardiomegaly. 3. Diffuse bronchial wall thickening. This is consistent with a bronchitis. 4. Borderline bilateral hilar lymphadenopathy. on room air no dyspnea given Tamiflu clinically improving continue Tamiflu to finish 5 day course ff up with PCP in 1 week New A. fib RVR: Patient found to be in A. fib with heart rate in 100 - 130 at presentation, patient was started on heparin drip and Cardizem drip in the ED Echo: EF 55-60% mild concentric LVH no significant valvular pathology remains in A fib but HR controlled Diltiazem drip discontinued, transitioned to Metoprolol 25mg po BID on Heparin drip--> transitioned to Eliquis 5mg BID discharge on: Metoprolol 25mg po BID Eliquis 5mg BID ff up with Latin American Studies Director in [facility] Likely demand ischemia: Troponin elevated at 32.1 --> 28 DVT prophylaxis: Patient on heparin drip DNR/DNI plan of care discussed with patient in detail and at length all questions answered he is understanding, agreeable, comfortable with the plan of care Admission and Anticipated Discharge Date Admission Date: July 25, 2022 Subjective ff up for Influenza A infection, A fib etc seen resting in bed, comfortable states he feels better overall minimal dry cough, no shortness of breath, fever/chills no chest pain, palpitations, dizziness no other symptoms states he is ready for discharge no other symptoms Review of Systems Review of Systems: all noted and negative except for above Physical Exam Physical Exam: General- oriented x 3, not in distress, speaks in sentences with no effort or accessory muscle use Eyes- anicteric Neck- no JVD Lungs- clear breath sounds bilaterally, no rales/wheezes Heart- normal rate, regular rhythm; no murmurs Abdomen- normal bowel sounds, nondistended, soft, nontender Extremities- no pretibial edema, no calf tenderness Neuro- alert, oriented x 3; no gross focal neurologic deficits Skin- warm & dry Results & Data Results & Data ([facility]) Vital Signs (Past 12 Hours) Vital Signs Temp Pulse Resp BP Pulse Ox O2 Del Method 07/27/22 11:21 36.6 C 85 18 109/71 91 07/27/22 07:36 36.6 C 85 18 109/71 91 Room Air 07/27/22 03:27 36.6 C 66 18 116/77 94 Room Air
--- NOTE | 2022-07-27 13:13 | Cardiology Progress Note ---
Date of Service July 27, 2022 Assessment & Plan (1) Atrial fibrillation with RVR: (2) Influenza: (3) Elevated troponin: Plan Natural history and pathophysiology of paroxysmal atrial fibrillation in the setting of influenza A infection discussed. Continue metoprolol tartrate 25 mg twice daily for rate control. Transition patient to oral Eliquis 5 mg twice daily this morning. IV heparin will be discontinued. Results of echocardiogram reviewed. LV function is preserved without significant valvular pathology. Mild left atrial enlargement noted. Consideration for elective external direct-current cardioversion after 4 weeks of adequate anticoagulation. Patient will follow up with his weld fitter in the [facility]. No further inpatient cardiology testing or intervention at this time. Thank you for allowing me to participate in the care of your patient. Cardiology will sign off. Admission and Anticipated Discharge Date Admission Date: July 25, 2022 Subjective Patient seen examined the bedside. Continues to note cough without sputum production. Denies chest pain or palpitations. Overall fatigue and weakness mildly improved. Anxious for discharge. Offers no new concerns/complaints. Review of Systems Review of Systems: All systems reviewed & are unremarkable except as noted in Subjective Physical Exam Constitutional: well developed and well nourished; no acute distress Respiratory: normal respiratory effort; no respiratory distress, no labored breathing and no retractions Cardiovascular: Rate/Rhythm: + irregularly irregular Heart Sounds: normal S1 and normal S2; no murmur Vessels: no JVD and no carotid bruit Extremities: no edema Gastrointestinal (Abdomen): Inspection/Auscultation: abdomen normal to inspection and normal bowel sounds; abdomen not distended Percussion/Palpation: abdomen soft; abdomen nontender, no guarding and abdomen not rigid Neurologic: CN's II-XI intact bilaterally and moves all extremities; no focal motor deficits Psychiatric: A+Ox3, euthymic affect Results & Data ([facility]) Vital Signs (Past 12 Hours) Vital Signs Temp Pulse Resp BP Pulse Ox O2 Del Method 07/27/22 11:21 36.6 C 85 18 109/71 91 07/27/22 07:36 36.6 C 85 18 109/71 91 Room Air 07/27/22 03:27 36.6 C 66 18 116/77 94 Room Air
--- NOTE | 2022-08-04 15:22 | Discharge Summary ---
Discharge Summary Date of Service August 04, 2022 Notes For Next Care Provider per Field Clinical Engineer: Consideration for elective external direct-current cardioversion after 4 weeks of adequate anticoagulation. 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 Patient denies any sick contact. Patient denies any fever. Patient reports myalgia. Reports decreased appetite. Patient denies any diarrhea or chest pain or palpitation. Patient reports bilateral lower thoracic cage pain due to coughing. Patient denies any acute changes in his bladder habit lately. Patient reports having treadmill stress test almost 2 months ago and was told that the test was fairly WNL. Patient reports having history of ectopic heart rate. Patient quit smoking in 1989, quit drinking alcohol heavily in 1967 and currently drinks 1 drink a week. Denies use of recreational drugs. DNR/DNI per discussion with patient. 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 Family history significant of A. fib in mother and father, some kind of cancer in his mother per patient. Patient is from the [facility], visiting the area. Admission Exam Per Admitting Provider GENERAL: Alert and oriented x3. NAD, on RA. HEENT: No pallor, no icterus. Pupils equal, round and reactive to light. Oral mucosa moist. NECK: No JVD, no neck masses. HEART: S1 and S2 heard. irregular rate and rhythm, 90s - 100s. No murmur, no gallop. RESPIRATORY SYSTEM: Normal AP diameter. No accessory muscle use. No wheezing, no crackles. ABDOMEN: Soft, bowel sounds present, nontender, no distention. Umbilical hernia noted. CENTRAL NERVOUS SYSTEM: No facial droop. Speech is clear. Obeys simple commands. Moves extremities. EXTREMITIES: No edema, no erythema seen. Principal Dx & Hospital Course #1 = Principal Diagnosis (1) Atrial fibrillation with RVR: Plan Generalized weakness Influenza A CT chest: 1. No evidence for a pulmonary embolus. 2. Mild cardiomegaly. 3. Diffuse bronchial wall thickening. This is consistent with a bronchitis. 4. Borderline bilateral hilar lymphadenopathy. on room air no dyspnea given Tamiflu clinically improving continue Tamiflu to finish 5 day course ff up with PCP in 1 week New A. fib RVR: Patient found to be in A. fib with heart rate in 100 - 130 at presentation, patient was started on heparin drip and Cardizem drip in the ED Echo: EF 55-60% mild concentric LVH no significant valvular pathology remains in A fib but HR controlled Diltiazem drip discontinued, transitioned to Metoprolol 25mg po BID on Heparin drip--> transitioned to Eliquis 5mg BID discharge on: Metoprolol 25mg po BID Eliquis 5mg BID ff up with Field Clinical Engineer in [facility] Likely demand ischemia: Troponin elevated at 32.1 --> 28 DVT prophylaxis: Patient on heparin drip DNR/DNI plan of care discussed with patient in detail and at length all questions answered he is understanding, agreeable, comfortable with the plan of care Discharge Exam General- oriented x 3, not in distress, speaks in sentences with no effort or accessory muscle use Eyes- anicteric Neck- no JVD Lungs- clear breath sounds bilaterally, no rales/wheezes Heart- normal rate, regular rhythm; no murmurs Abdomen- normal bowel sounds, nondistended, soft, nontender Extremities- no pretibial edema, no calf tenderness Neuro- alert, oriented x 3; no gross focal neurologic deficits Skin- warm & dry Updated Medication List Medication Instructions Recorded Confirmed Type acyclovir 400 mg tablet 400 mg PO QPM 07/25/22 07/25/22 History finasteride 5 mg tablet 5 mg PO QPM 07/25/22 07/25/22 History tamsulosin 0.4 mg capsule 0.4 mg PO QPM 07/25/22 07/25/22 History apixaban 5 mg tablet (Eliquis) 5 mg PO BID 30 days #60 tabs 07/27/22 Rx metformin 500 mg tablet 500 mg PO AMPM #30 tabs 07/27/22 07/25/22 Rx metoprolol tartrate 25 mg tablet 25 mg PO BID 30 days #60 tabs 07/27/22 Rx oseltamivir 75 mg capsule (Tamiflu) 75 mg PO BID #7 caps 07/27/22 Rx Hospital Stay Data Consultations 07/25/22 23:24 ED Decision to Admit Stat 07/26/22 02:28 Consult Cardiology Routine 07/27/22 11:13 Burn CD for patient Routine Diagnostic Imagining Performed 07/25/22 21:17 CT angio chest PE protocol Urgent CT DOSE: 570.28 mGy.cm HISTORY: Shortness of breath. TECHNIQUE: Multiaxial CT images of the chest were performed following the intravenous administration of contrast to evaluate the pulmonary arteries. Maximal intensity projection images were also obtained. A dose lowering technique was utilized adhering to the principles of ALARA. COMPARISON STUDY: None. FINDINGS: The visualized liver and spleen are unremarkable. Normal caliber esophagus. No pleural or pericardial effusions. The heart is mildly enlarged. There are extensive coronary artery calcifications noted. No mediastinal lymphadenopathy. There are few ulna bilateral hilar lymph nodes. The thyroid gland enhances normally. Normal caliber abdominal aorta with no evidence for a dissection. The majority of the subsegmental pulmonary arteries within the lung bases are nondiagnostic due to the respiratory motion artifact. Otherwise, no filling defects within the remaining pulmonary arteries to suggest a pulmonary embolus. No suspicious lytic or blastic osseous lesions. No pneumothorax. Diffuse bronchial wall thickening is noted. Punctate calcified granuloma within the left lower lobe. Mild emphysema. Mild dependent changes seen within the lungs posteriorly. Suboptimal evaluation of the lungs due to the respiratory motion artifact. IMPRESSION: 1. No evidence for a pulmonary embolus. 2. Mild cardiomegaly. 3. Diffuse bronchial wall thickening. This is consistent with a bronchitis. 4. Borderline bilateral hilar lymphadenopathy. ACT 112: Negative or not required by law. Electronically signed by: Miko Faustin M.D. 07/26/2022 8:31 AM Pending Results Patient Have Any Pending Studies at Discharge: No Discharge Instructions Given to Patient (Per Discharging Provider) PLEASE REFER TO YOUR NEW MEDICATION LIST AND FOLLOW INSTRUCTIONS CAREFULLY. YOUR NEW MEDICATIONS INCLUDE: Tamiflu- for Influenza A infection Metoprolol- for heart rate control, atrial fibrillation Eliquis- blood thinner to prevent stroke Please resume your Metformin tomorrow, July 28, 2022, to avoid kidney injury as you have received IV contrast for CT scan of your chest during admission. Drink plenty of water. PLEASE CALL YOUR PRIMARY CARE PHYSICIAN OR RETURN TO THE ER IF WITH WORSENING OF SYMPTOMS, INCLUDING chest pain, palpitations, shortness of breath, dizziness, fever/chills, cough, sputum production, etc. FOLLOW UP WITH PRIMARY CARE PHYSICIAN AND HOUSING AND RESIDENCE LIFE DIRECTOR IN 1 WEEK. Total Time Total Time Spent Total Time Spent (In Minutes): >30 minutes
== END 2022-07-27 12:10 | disposition home or self-care (01) | DRG 309 ==
LOC: ED 20:19 → EDINP 23:35 → SUATTDRO 23:35 → 2S 07-26 01:33